=== PATIENT | female | born 1975 ===

== ENCOUNTER 2025-06-21 10:30 | Day surgery (SDC) | payer BC ==
[~2025-06-21 10:30] MED LIST: Propofol 200 MG/20 ML SDV ONE; fentaNYL 100 MCG/2 ML SDV ONE
[2025-06-21] MEDS: Lactated Ringers 1,000 ML IV SCH (10:41)
[2025-06-21] MEDS ORDERED: Propofol 200 MG/20 ML SDV ONE (12:17)
== END 2025-06-21 13:52 ==
LOC: VM.SDS 10:30
PROVIDERS: ATTEND Surgery
DX: Z12.11 Encounter for screening for malignant neoplasm of colon (principal); Z88.8 Allergy status to other drugs, medicaments and biological substances; Z91.09 Other allergy status, other than to drugs and biological substances; Z91.013 Allergy to seafood; Z79.899 Other long term (current) drug therapy; Z79.890 Hormone replacement therapy
CPT/HCPCS: 00812; J2704; J3010; J7120